=== PATIENT | female | born 1965 | race Caucasian/White ===

== ENCOUNTER 2017-01-24 10:27 | Emergency (ER) | payer OTHER ==
[~2017-01-24] VITALS: Ht 157.5 cm; Wt 75.0 kg
[~2017-01-24 10:27] MED LIST: LAMO150T32 PO; MESA1CAP2 PO; ONDA4TAB9 PO; OXYC-57 PO; PRED10TA PO; TIZA2TAB3 PO
[2017-01-24 10:36] VITALS: TEMP 36.7; Ht 157.5 cm; Wt 75.0 kg
[2017-01-24] MEDS ORDERED: [UNRECOGNIZED DRUG - CODE] PO (10:59)
[2017-01-24] MEDS ORDERED: LAMO200T38 PO (11:00)
[2017-01-24] MEDS ORDERED: DICY20TA35 PO (11:00)
[2017-01-24] MEDS ORDERED: LAMO100T16 PO (11:04)
[2017-01-24] MEDS ORDERED: RIZA10TA19 PO (11:04)
[2017-01-24] MEDS ORDERED: OXYC-292 PO (11:04)
[2017-01-24] MEDS ORDERED: PROMETHAZINE HCL INJ 12.5 MG in SODIUM CHLORIDE 0.9% 50ML 50 ML IV STA (11:24)
[2017-01-24] MEDS ORDERED: HYDROmorphone INJ 1 MG/ML SYR IV PRN (11:30)
[2017-01-24] MEDS ORDERED: SODIUM CHLORIDE 0.9% 1000ML 1,000 ML IV ONE (11:30)
[2017-01-24] MEDS ORDERED: OPTIRAY 320 IV PRN (11:30)
--- NOTE | 2017-01-24 11:56 | EMERGENCY ROOM VISIT NOTE ---
History First contact with patient: 11:09 Chief Complaint: GI ASSESSMENT Stated Complaint: COLITIS Nursing Triage Summary: Dx with colitis in 2014, tolerable since then but this past month the pain flares up daily. Poor intake, 28lb weight loss in 1 month, saw GI [employer], Leonarda Lopez today, sent here for pain control and IV fluids and wants her to have an upper and lower GI scope. History of Present Illness The patient is a 51 year old female who presents to the Emergency Room with complaints of chronic intermittent abdominal pain, nausea, vomiting and diarrhea that has been severe over the last month. The patient has had GI problems since 2014. There was a questionable diagnosis of colitis. Her symptoms were manageable up until this month. The patient has tried Bentyl and oxycodone with minimal relief of her symptoms. She denies any blood in her stool. No fever or chills. She reports a 20 pound weight loss in 1 month. The patient saw her GI doctor today, and was sent here for evaluation. Review of Systems 10 system review performed and negative unless noted in HPI or below Past Medical/Surgical History Medical Problems: (1) Chronic back pain (2) chronic migraines (3) Delivery by elective caesarean section (4) Hypertension Surgical Problems: (1) H/O gastric bypass (2) History of cholecystectomy (3) History of tubal ligation Family History Gallbladder disease Social History Smoking Status: Former Smoker Housing Status: lives with significant other Current/Historical Medications Scheduled Lamotrigine (Lamictal), 100 MG PO BID Rizatriptan Benzoate (Maxalt-Leaf Coverer), 10 MG PO UD Topiramate (Topiramate), 100 MG PO BID Vilazodone HCl (Viibryd), 40 MG PO DAILY Scheduled PRN Dicyclomine Hcl (Bentyl), 20 MG PO QID PRN for Muscle Spasms Oxycodone Hcl (Oxycodone Hcl Er), 10 MG PO Q6H PRN for Pain Oxycodone Ir (Roxicodone Ir), 2 TAB PO Q4H PRN for Pain Promethazine Hcl (Phenergan), 25 MG PO Q6H PRN for Nausea Physical Exam Vital Signs Date Time Temp Pulse Resp B/P (MAP) Pulse Ox O2 Delivery O2 Flow Rate FiO2 01/24/17 16:29 67 16 105/72 97 01/24/17 16:26 67 16 105/72 97 01/24/17 15:13 65 16 133/73 98 Room Air 01/24/17 13:36 67 18 131/72 98 Room Air 01/24/17 11:35 75 16 128/76 97 Room Air 01/24/17 10:36 36.7 74 18 132/86 97 Room Air Physical Exam VITALS: Vitals are noted on the nurse's note and reviewed by myself. Vital signs stable. GENERAL: 51-year-old female, in no acute distress, nondiaphoretic, well- developed well-nourished. SKIN: The skin was dry HEAD: Normocephalic atraumatic. MOUTH: Mucous membranes dry NECK: Supple without nuchal rigidity. No lymphadenopathy. Cervical spine is nontender. No JVD. HEART: Regular rate and rhythm without murmurs gallops or rubs. LUNGS: Clear to auscultation bilaterally without wheezes, rales or rhonchi. No accessory muscle use. ABDOMEN: Positive bowel sounds x 4.Soft, tenderness to palpation in the left upper quadrant, without organomegaly. No guarding or rebound tenderness. MUSCULOSKELETAL: No muscle atrophy, erythema, or edema noted. Strength 5/5 throughout. NEURO: Patient was alert and oriented to person place and time. Normal sensation to touch. No focal neurological deficits. Medical Decision & Procedures ER Provider Diagnostic Interpretation: CT abd/pelvis w/ contrast IMPRESSION: 1. Cystic structure of the right adnexum, 2.6 x 2.3 cm suggests dominant ovarian follicle. Probable nabothian cyst of the cervix also noted. 2. Postsurgical changes of prior Rosie-en-Y gastric bypass with nonspecific fluid again seen within the excluded stomach and biliary limb. No bowel obstruction. 3. Normal appendix. 4. Prior cholecystectomy. The above report was generated using voice recognition software. It may contain grammatical, syntax or spelling errors. Electronically signed by: Chaitanya San M.D. 01/24/2017 2:29 PM Laboratory Results 01/24/17 10:55 Red Blood Count 4.59, Mean Corpuscular Volume 83.2, Mean Corpuscular Hemoglobin 27.0, Mean Corpuscular Hemoglobin Concent 32.5, Mean Platelet Volume 9.6, Neutrophils (%) (Auto) 58.2, Lymphocytes (%) (Auto) 30.4, Monocytes (%) (Auto) 8.8, Eosinophils (%) (Auto) 2.1, Basophils (%) (Auto) 0.3, Neutrophils # (Auto) 3.55, Lymphocytes # (Auto) 1.86, Monocytes # (Auto) 0.54, Eosinophils # (Auto) 0.13, Basophils # (Auto) 0.02 01/24/17 10:55 Test 01/24/17 10:55 White Blood Count 6.11 K/uL (4.8-10.8) Red Blood Count 4.59 M/uL (4.2-5.4) Hemoglobin 12.4 g/dL (12.0-16.0) Hematocrit 38.2 % (37-47) Mean Corpuscular Volume 83.2 fL (80-100) Mean Corpuscular Hemoglobin 27.0 pg (25-34) Mean Corpuscular Hemoglobin Concent 32.5 g/dl (32-36) Platelet Count 338 K/uL (130-400) Mean Platelet Volume 9.6 fL (7.4-10.4) Neutrophils (%) (Auto) 58.2 % Lymphocytes (%) (Auto) 30.4 % Monocytes (%) (Auto) 8.8 % Eosinophils (%) (Auto) 2.1 % Basophils (%) (Auto) 0.3 % Neutrophils # (Auto) 3.55 K/uL (1.4-6.5) Lymphocytes # (Auto) 1.86 K/uL (1.2-3.4) Monocytes # (Auto) 0.54 K/uL (0.11-0.59) Eosinophils # (Auto) 0.13 K/uL (0-0.5) Basophils # (Auto) 0.02 K/uL (0-0.2) RDW Standard Deviation 41.1 fL (36.4-46.3) RDW Coefficient of Variation 13.6 % (11.5-14.5) Immature Granulocyte % (Auto) 0.2 % Immature Granulocyte # (Auto) 0.01 K/uL (0.00-0.02) Erythrocyte Sedimentation Rate 15 mm/hr (0-21) Anion Gap 7.0 mmol/L (3-11) Est Creatinine Clear Calc Drug Dose 89.6 ml/min Estimated GFR () 114.0 Estimated GFR (Non- 98.3 BUN/Creatinine Ratio 14.6 (10-20) Calcium Level 8.4 mg/dl (8.5-10.1) Magnesium Level 2.2 mg/dl (1.8-2.4) Total Bilirubin 0.3 mg/dl (0.2-1) Aspartate Amino Transf (AST/SGOT) 42 U/L (15-37) Alanine Aminotransferase (ALT/SGPT) 43 U/L (12-78) Alkaline Phosphatase 135 U/L (45-117) Total Creatine Kinase 116 U/L (26-192) Total Protein 6.9 gm/dl (6.4-8.2) Albumin 3.6 gm/dl (3.4-5.0) Globulin 3.3 gm/dl (2.5-4.0) Albumin/Globulin Ratio 1.1 (0.9-2) Medications Administered Medications (Trade) Dose Ordered Sig/Josselin Route Start Time Stop Time Status Last Admin Dose Admin Sodium Chloride 1,000 ml @ 999 mls/hr Q1H1M ONCE IV 01/24/17 11:30 01/24/17 12:30 DC 01/24/17 11:30 999 MLS/HR Hydromorphone HCl (Dilaudid Inj) 1 mg Q2H PRN IV 01/24/17 11:30 01/24/17 17:13 DC 01/24/17 11:38 1 MG Promethazine HCl 12.5 mg/Sodium Chloride 50.5 ml @ 204 mls/hr NOW STAT IV 01/24/17 11:24 01/24/17 11:38 DC 01/24/17 11:38 204 MLS/HR ED Course Patient was seen and examined Vital signs including blood pressure were reviewed medications list was verified with patient Labs were obtained, and a saline lock was established The patient was medicated with Dilaudid and Phenergan. She was hydrated with 1 L of normal saline. Imaging was performed and reviewed Upon reassessment, the patient was sleeping in bed. I discussed the findings of her workup. She voiced understanding. The case was discussed with supervising physician. It was also discussed with case management. I also contacted patient's primary care provider. I reviewed discharge instructions the patient. They voiced understanding and had no further questions. Medical Decision DIFFERENTIAL DIAGNOSIS: Gastroenteritis, Hepatitis, cholecystitis, cholangitis, biliary colic, pancreatitis, appendicitis, inguinal hernia, nephrolithiasis, inflammatory bowel disease, mesenteric adenitis, peptic ulcer disease, GERD, gastritis, pancreatitis,, bowel obstruction, splenic infarct, diverticulitis, mesenteric ischemia, metabolic, peritonitis, narcotic seeking behavior This patient is a 51-year-old female presents emergency department from her GI doctor with complaints of continued nausea, vomiting, diarrhea, weight loss and abdominal pain. On exam, the patient did appear slightly dehydrated. Her CT of the abdomen and pelvis was fairly unremarkable and unchanged from her previous CT scan. There is no leukocytosis. She is tolerating liquids without difficulty. Her pain was well controlled in the emergency department. I do not think that she needs to be admitted for pain control. The patient does typically take oxycodone 10 mg every 6 hours as needed for pain at home. It was suggested that the patient increase his temporarily to 10 mg every 4 hours. The patient was given a follow-up appointment with GI next week. She was also provided a prescription for Phenergan for nausea. The patient is comfortable being discharged home. She agrees to return to the emergency department with any new or persistent symptoms. Of note, the patient has a pain contract with her primary care provider. I notified patient's primary care doctor of my plan. This chart was completed in part utilizing [employer] Voice Recognition software. Attempts were made to minimize the grammatical errors, random word insertions, pronoun errors and incomplete sentences. Any formal questions or concerns about the content, text or information contained within the body of this dictation should be directly addressed to the provider for clarification. Blood Pressure Screening Patient's blood pressure: Normal blood pressure Impression Primary Impression: Abdominal pain Departure Information Dispostion Home / Self-Care Condition FAIR Prescriptions Promethazine Hcl (Phenergan) 25 Mg Tab 25 MG PO Q6H Y for Nausea, #20 TAB Prov: Miroslava Martines PA-C 01/24/17 Oxycodone Ir (Roxicodone Ir) 5 Mg Tab 2 TAB PO Q4H Y for Pain, #15 TAB For Initial Treatment Prov: Miroslava Martines PA-C 01/24/17 Referrals Ra Bateman M.D. (PCP) Hugh Sandhu M.D. Patient Instructions My [facility] Additional Instructions Please follow a clear liquid diet such as broths, water and soda for 24 hours. If tolerating, this may be advanced to a bland diet such as crackers and dry toast. Please take Phenergan every 6 hours as needed for nausea. Please take oxycodone 10 mg every 4 hours as needed for abdominal pain. Do not drink alcohol or drug well taking this medication. Please follow-up with your GI doctors. An appointment is being made for you. Please continue other medications as prescribed. Return to the emergency department if you have any of the following symptoms: -Fever of 103F or greater -Persistent vomiting - Persistent diarrhea -Lethargy -Chest pain -Shortness of breath -Worsening pain
[2017-01-24 12:09] LABS: BASO % 0.3 %; BASO ABS # 0.02 K/uL (0-0.2); COMPLETE YES; EOS % 2.1 %; HEMATOCRIT 38.2 % (37-47); IG% 0.2 %; LYMPH % 30.4 %; LYMPH ABS # 1.86 K/uL (1.2-3.4); MEAN CELL VOLUME 83.2 fL (80-100); MEAN CORPUSCULAR HGB CONC 32.5 g/dl (32-36); MEAN PLATELET VOLUME 9.6 fL (7.4-10.4); MONO % 8.8 %; NEUT % 58.2 %; PLATELET COUNT 338 K/uL (130-400); RED BLOOD COUNT 4.59 M/uL (4.2-5.4); WHITE BLOOD COUNT 6.11 K/uL (4.8-10.8)
[2017-01-24 12:14] LABS: BUN/CREATININE RATIO 14.6 (10-20); CALCIUM 8.4 mg/dl (8.5-10.1); CREATININE 0.72 mg/dl (0.60-1.20); MAGNESIUM 2.2 mg/dl (1.8-2.4); POTASSIUM 3.5 mmol/L (3.5-5.1)
[2017-01-24 12:18] LABS: ALB/GLOB RATIO 1.1 (0.9-2)
--- NOTE | 2017-01-24 14:30 | DIAGNOSTIC IMAGING REPORT ---
ABD/PELVIS IV AND ORAL CONT HISTORY: 51 years-old Female chronic abd pain n/v/d ? IBD chronic generalized abdominal pain with nausea, vomiting and diarrhea. Question inflammatory bowel disease. Initial exam COMPARISON: CT 05/17/2014, 04/05/2014 TECHNIQUE: Multiple axial CT images of the abdomen and pelvis were obtained following the intravenous administration of 120 mL Optiray 320. Oral contrast also administered. A dose lowering technique was used consistent with the principals of TODD. FINDINGS: There is minimal dependent bibasilar atelectasis. No pneumoperitoneum identified. Imaged inferior cardiac chambers are unremarkable. Prior cholecystectomy. Mild dilation of the common bile duct, 9 mm is likely secondary to postcholecystectomy state. There is mild intrahepatic biliary ductal dilation as well which is also likely physiologic and unchanged. Liver parenchyma is unremarkable. Spleen, pancreas and adrenal glands are within normal limits. Kidneys, ureters, urinary bladder, uterus and left adnexum are unremarkable. Probable nabothian cyst measures 7 mm. Cystic structure of the right adnexum is seen, 2.6 x 2.3 cm. There is a surgical clip within the region of the left adnexum which is unchanged and may reflect a tubo-ovarian occlusion device however is nonspecific. The dominant aorta is normal in both course and caliber with mild mixed plaquing. No bulky adenopathy identified. Postsurgical changes of prior Rosie-en-Y gastric bypass. Mild fluid within the excluded stomach and biliary limb again seen which is unchanged. There is no bowel obstruction or evidence of anastomotic dehiscence on these images. Moderate stool ball within the rectum. The appendix appears normal. Small fat filled umbilical hernia, diastases 1.5 cm. Postsurgical changes of the lower lumbar spine with prior posterior decompression and interbody fusion at L4-S1. There is unchanged 9 mm anterolisthesis L5 on S1. IMPRESSION: 1. Cystic structure of the right adnexum, 2.6 x 2.3 cm suggests dominant ovarian follicle. Probable nabothian cyst of the cervix also noted. 2. Postsurgical changes of prior Rosie-en-Y gastric bypass with nonspecific fluid again seen within the excluded stomach and biliary limb. No bowel obstruction. 3. Normal appendix. 4. Prior cholecystectomy. The above report was generated using voice recognition software. It may contain grammatical, syntax or spelling errors. Electronically signed by: Chaitanya San M.D. 01/24/2017 2:29 PM Dictated Date/Time: 01/24/2017 2:20 PM
[2017-01-24] MEDS ORDERED: TPM100 PO (14:32)
[2017-01-24] MEDS ORDERED: PROM25TA9 PO (16:05)
[2017-01-24] MEDS ORDERED: OXYC1TAB3 PO (16:05)
[2017-01-24 16:29] VITALS: BP 105/72; PULSE 67; O2SAT 97
== END 2017-01-24 16:29 | disposition home or self-care (01) ==
LOC: C.EDB 10:29 → C.EDC 16:29
DX: R10.9 Unspecified abdominal pain (principal); I10 Essential (primary) hypertension; Z87.891 Personal history of nicotine dependence